=== PATIENT | female | born 1980 | race African-American/Black ===

== ENCOUNTER 2018-11-08 15:33 | Outpatient (CLI) | payer OTHER | END 2018-11-08 15:34 | disposition home or self-care (01) | LOC: BICMAMMO 15:33 | PROVIDERS: ATTEND Family Medicine | DX: Z12.31 Encounter for screening mammogram for malignant neoplasm of breast (principal) | CPT/HCPCS: 77067 ==

== ENCOUNTER 2023-09-26 00:52 | Inpatient (IN) | payer OTHER ==
[2023-09-26 03:06] LABS: Hematocrit 17.6 % (36.0-47.0); Hemoglobin 6.5 g/dL (12.0-16.0); Mean Corpuscular HGB CONC 36.9 g/dL (32.0-36.0); Mean Corpuscular Hemoglobin 39.6 pg (27.0-31.0); Mean Corpuscular Volume 107.3 fl (78.0-98.0); Mean Platelet Volume 10.3 fL (7.4-10.4); Platelet Count 541 10x3/uL (130-400); RBC Distribution Width 17.6 % (11.5-14.5); Red Blood Cell (RBC) Count 1.64 mill/uL (4.20-5.40); White Blood Cell (WBC) Count 15.1 10x3/uL (4.8-10.8)
[2023-09-26 03:10] LABS: Delete Auto Diff?? YES; Manual Diff?? YES
[2023-09-26 03:30] LABS: ALT (SGPT) 85 U/L (8-55); AST (SGOT) 98 U/L (5-34); Albumin 4.5 g/dL (3.5-5.0); Alkaline Phosphatase 105 U/L (40-110); Anion Gap 14 mmol/L (10-20); BUN (Urea Nitrogen) 15 mg/dL (7.0-18.7); Bilirubin, Total 2.4 mg/dL (0.2-1.2); Calc. Creatinine Clearance 0 mL/min (70-130); Carbon Dioxide 17 mmol/L (22-29); Chloride 111 mmol/L (98-107); Estimated GFR 90; Globulin 3.5 g/dL (2.4-3.5); Glucose 90 mg/dL (70-105); Potassium 4.5 mmol/L (3.5-5.1); Sodium 137 mmol/L (136-145)
[2023-09-26 04:29] LABS: Pregnancy Test - Urine (BHCG) Negative (Negative); Pregu Control Bar Appear? YES (CONTROL BAR)
[2023-09-26 04:30] LABS: Pregu Control Background? CLEAR/WHITE (CLR/WHITE)
[2023-09-26 04:32] LABS: Bilirubin Negative (Negative); Blood, Urine 3+ (Negative); CAUTI Indications for Culture Dysuria,urgency,freq; Clarity Turbid (Clear); Glucose, Urine (Dipstick) Normal (Negative); Ketone, Urine Negative (Negative); Leukocyte 250 Leu/uL (Negative); Nitrite Negative (Negative); Protein, Urine (Dipstick) 30 mg/dL (Neg-Trace); Specific Gravity, Urine 1.013 (1.002-1.036); WBC/HPF 21-50 HPF (0-3)
[2023-09-26 04:36] LABS: Magnesium 2.1 mg/dL (1.6-2.6)
[2023-09-26 04:41] LABS: Troponin I Less than 0.010 ng/mL (< 0.028)
[2023-09-26] MEDS ORDERED: Morphine 4 MG/ML VIAL ONE ×2 (04:45→05:57)
[2023-09-26] MEDS ORDERED: Ondansetron PF 4 MG/2 ML Vial ONE (04:45)
[2023-09-26 05:04] LABS: Bacteria/HPF 1+ HPF (None Seen); Urine Culture Reflex Yes Yes
[2023-09-26 05:05] LABS: Specific Gravity 1.013 (1.002-1.036)
[2023-09-26 05:42] LABS: Band 23 % (5-11); Lymphocytes 10 % (21-51); Monocytes 9 % (0-10); Neutrophil 58 % (42-75); Nucleated RBC (Manual Ct) 5 % (0)
[2023-09-26 05:43] LABS: Anisocytosis MODERATE=16-30 cells (100X) (0-5/hpf); Polychromasia SLIGHT = 2-3 cells (100X) (0-2/hpf); Sickle Cells SLIGHT = 1-5 cells (100X) (None Seen); Target Cells SLIGHT = 2-5 cells (100X) (0-1/hpf)
[2023-09-26] MEDS ORDERED: Piperacillin/Tazobactam 3.375 GM VIAL ONE (05:57)
[2023-09-26] MEDS ORDERED: Sodium Chloride 0.9% 100 ML ONE (05:58)
[2023-09-26 06:30] LABS: SARS-CoV-2 NAA Rapid Test DETECTED (NotDetected)
[2023-09-26] MEDS ORDERED: Senokot S 8.6-50 MG TAB PO PRN (07:24)
[2023-09-26] MEDS ORDERED: Ondansetron PF 4 MG/2 ML Vial IVP PRN (07:24)
[2023-09-26] MEDS ORDERED: Ondansetron ODT 4 MG TAB PO PRN (07:24)
[2023-09-26] MEDS ORDERED: Calcium Carbonate 500 MG ChewTAB PO PRN (07:24)
[2023-09-26] MEDS ORDERED: Acetaminophen 500 MG TAB PO PRN (07:27)
[2023-09-26 09:58] VITALS: BMI 22.4
[2023-09-26] MEDS: Morphine 4 MG/ML VIAL SLOW IVP PRN ×3 (12:10→21:54)
[2023-09-26] MEDS: cefTRIAXone\\ROCEPHIN 1 GM in Sodium Chloride 0.9% 100 ML IVPB SCH (12:11)
[2023-09-26] MEDS ORDERED: Iopamidol 370 76% 100 ML VIAL ONE (14:33)
[2023-09-26] MEDS: Lactated Ringer's 1,000 ML IV SCH ×3 (16:53→21:56)
[2023-09-26 19:13] LABS: #Basophils 0.1 thou/uL (0.0-0.2); #Eosinphils 0.2 thou/uL (0.0-0.7); #Monocytes 1.3 thou/uL (0.11-0.59); #Neutrophils 6.8 thou/uL (1.40-6.50); %Basophils 0.5 % (0.0-1.0); %Eosinophils 1.4 % (0.0-10.0); %Lymphocytes 42.7 % (21.0-51.0); %Monocytes 8.7 % (0.0-10.0); %Neutrophils 45.8 % (42.0-75.0); Hematocrit 24.4 % (36.0-47.0); Mean Corpuscular HGB CONC 36.9 g/dL (32.0-36.0); Mean Corpuscular Hemoglobin 36.4 pg (27.0-31.0); Mean Platelet Volume 10.8 fL (7.4-10.4); Platelet Count 520 10x3/uL (130-400); RBC Distribution Width 19.9 % (11.5-14.5); Red Blood Cell (RBC) Count 2.47 mill/uL (4.20-5.40)
[2023-09-26 19:20] LABS: Manual Diff?? YES; Mean Corpuscular Volume 98.8 fl (78.0-98.0)
[2023-09-26 19:50] LABS: Band 6 % (5-11); Eosinophils 2 % (0-10); Lymphocytes 38 % (21-51); Monocytes 6 % (0-10); Neutrophil 46 % (42-75); Nucleated RBC (Manual Ct) 6 % (0); Reactive Lymphocytes 2 % (0-10)
[2023-09-26 19:52] LABS: Anisocytosis MODERATE=16-30 cells (100X) (0-5/hpf); Burr Cells SLIGHT = 2-5 cells (100X) (0-1/hpf); Elliptocytes SLIGHT = 2-5 cells (100X) (0-1/hpf); Polychromasia SLIGHT = 2-3 cells (100X) (0-2/hpf); Sickle Cells SLIGHT = 1-5 cells (100X) (None Seen); Target Cells SLIGHT = 2-5 cells (100X) (0-1/hpf)
[2023-09-26 19:53] LABS: Platelet Adequacy Comment Appears Increased; RBC Morph Comment Within Normal Limits
[2023-09-27] MEDS: Morphine 4 MG/ML VIAL SLOW IVP PRN ×6 (01:37→22:40)
[2023-09-27] MEDS: Lactated Ringer's 1,000 ML IV SCH ×2 (06:22→17:42)
[2023-09-27 06:47] LABS: Hematocrit 25.2 % (36.0-47.0); Hemoglobin 9.1 g/dL (12.0-16.0); Mean Corpuscular HGB CONC 36.1 g/dL (32.0-36.0); Mean Corpuscular Volume 96.9 fl (78.0-98.0); Mean Platelet Volume 12.2 fL (7.4-10.4); RBC Distribution Width 21.2 % (11.5-14.5); White Blood Cell (WBC) Count 14.9 10x3/uL (4.8-10.8)
[2023-09-27 06:57] LABS: Delete Auto Diff?? YES; Manual Diff?? YES; Platelet Count 294 10x3/uL (130-400)
[2023-09-27 07:10] LABS: CRP (Inflammatory) 1.46 mg/dL (= or < 0.5); Magnesium 1.9 mg/dL (1.6-2.6)
[2023-09-27 07:30] LABS: ALT (SGPT) 75 U/L (8-55); AST (SGOT) 90 U/L (5-34); Albumin 4.2 g/dL (3.5-5.0); Alkaline Phosphatase 111 U/L (40-110); Anion Gap 14 mmol/L (10-20); BUN (Urea Nitrogen) 7 mg/dL (7.0-18.7); Bilirubin, Total 2.6 mg/dL (0.2-1.2); Calc. Creatinine Clearance 92 mL/min (70-130); Carbon Dioxide 19 mmol/L (22-29); Chloride 110 mmol/L (98-107); Estimated GFR 109; Globulin 3.7 g/dL (2.4-3.5); Glucose 74 mg/dL (70-105); Protein, Total 7.9 g/dL (6.0-8.3); Sodium 138 mmol/L (136-145)
[2023-09-27 07:40] LABS: Band 8 % (5-11); CellaVision Operator ID LAB.GE; Eosinophils 2 % (0-10); Howell Jolly Bodies SLIGHT = 1-2 cells HPF (None Seen); Hypochromia SLIGHT = 6-15 cells HPF (0-5); Lymphocytes 35 % (21-51); Monocytes 8 % (0-10); Myelocyte 1 % (0-0); Neutrophil 43 % (42-75); Nucleated RBC (Manual Ct) 8 % (0); Platelet Adequacy Comment Platelets Normal; Polychromasia MODERATE = 3-4 cells HPF (0-2); Reactive Lymphocytes 1 % (0-10); Sickle Cells MODERATE= 6-15 cells HPF (None Seen); Total Cell Count 100
[2023-09-27] MEDS: cefTRIAXone\\ROCEPHIN 1 GM in Sodium Chloride 0.9% 100 ML IVPB SCH (12:19)
[2023-09-28] MEDS: Lactated Ringer's 1,000 ML IV SCH ×4 (00:03→20:05)
[2023-09-28] MEDS: Morphine 4 MG/ML VIAL SLOW IVP PRN (02:43)
[2023-09-28] MEDS: HYDROcodone/Acetaminophen 5/325 mg Tablet PO PRN ×4 (07:52→20:04)
[2023-09-28 07:55] LABS: Hematocrit 26.8 % (36.0-47.0); Hemoglobin 9.6 g/dL (12.0-16.0); Mean Corpuscular HGB CONC 35.8 g/dL (32.0-36.0); Mean Corpuscular Hemoglobin 35.2 pg (27.0-31.0); Mean Corpuscular Volume 98.2 fl (78.0-98.0); Platelet Count 288 10x3/uL (130-400); RBC Distribution Width 21.2 % (11.5-14.5); Red Blood Cell (RBC) Count 2.73 mill/uL (4.20-5.40); White Blood Cell (WBC) Count 13.9 10x3/uL (4.8-10.8)
[2023-09-28 08:04] LABS: Delete Auto Diff?? YES; Manual Diff?? YES
[2023-09-28 09:37] LABS: ALT (SGPT) 71 U/L (8-55); AST (SGOT) 87 U/L (5-34); Albumin 4.5 g/dL (3.5-5.0); Alkaline Phosphatase 119 U/L (40-110); Anion Gap 21 mmol/L (10-20); BUN (Urea Nitrogen) 8 mg/dL (7.0-18.7); Calc. Creatinine Clearance 90 mL/min (70-130); Calcium 10.3 mg/dL (7.8-10.44); Carbon Dioxide 13 mmol/L (22-29); Chloride 109 mmol/L (98-107); Estimated GFR 109; Globulin 3.8 g/dL (2.4-3.5); Glucose 81 mg/dL (70-105); Potassium 4.8 mmol/L (3.5-5.1); Protein, Total 8.3 g/dL (6.0-8.3); Sodium 138 mmol/L (136-145)
[2023-09-28 10:30] LABS: Anisocytosis SLIGHT = 6-15 cells HPF (0-5); Band 4 % (5-11); CellaVision Operator ID LAB.GE; Eosinophils 2 % (0-10); Lymphocytes 51 % (21-51); Monocytes 2 % (0-10); Neutrophil 38 % (42-75); Nucleated RBC (Manual Ct) 9 % (0); Platelet Adequacy Comment Platelets Normal; Polychromasia MODERATE = 3-4 cells HPF (0-2); Reactive Lymphocytes 2 % (0-10); Sickle Cells SLIGHT = 1-5 cells HPF (None Seen); Total Cell Count 100
[2023-09-28] MEDS: cefTRIAXone\\ROCEPHIN 1 GM in Sodium Chloride 0.9% 100 ML IVPB SCH (12:01)
[2023-09-29] MEDS: HYDROcodone/Acetaminophen 5/325 mg Tablet PO PRN ×2 (00:46→05:34)
[2023-09-29] MEDS: Lactated Ringer's 1,000 ML IV SCH (08:55)
[2023-09-29 11:51] LABS: ALT (SGPT) 61 U/L (8-55); AST (SGOT) 73 U/L (5-34); Albumin 4.3 g/dL (3.5-5.0); Alkaline Phosphatase 112 U/L (40-110); Anion Gap 14 mmol/L (10-20); BUN (Urea Nitrogen) 8 mg/dL (7.0-18.7); Calc. Creatinine Clearance 93 mL/min (70-130); Calcium 10.3 mg/dL (7.8-10.44); Carbon Dioxide 20 mmol/L (22-29); Chloride 108 mmol/L (98-107); Estimated GFR 110; Globulin 3.5 g/dL (2.4-3.5); Glucose 82 mg/dL (70-105); Potassium 4.8 mmol/L (3.5-5.1); Protein, Total 7.8 g/dL (6.0-8.3); Sodium 137 mmol/L (136-145)
[2023-09-29 12:36] VITALS: BP 132/74; TEMP 98
[2023-09-29] MEDS: cefTRIAXone\\ROCEPHIN 1 GM in Sodium Chloride 0.9% 100 ML IVPB SCH (13:13)
== END 2023-09-29 14:55 | disposition home or self-care (01) | DRG 177 ==
LOC: ERS 00:52 → SUATTDRO 00:52 → T4-B 08:41
PROVIDERS: ADMIT Internal Medicine; ATTEND Family Medicine
PROC: 30233N1 Transfusion of Nonautologous Red Blood Cells into Peripheral Vein, Percutaneous Approach (ICD-10-PCS; principal; 2023-09-26)
PROC: 8E0ZXY6 Isolation (ICD-10-PCS; 2023-09-26)
DX: U07.1 COVID-19 (principal); D57.00 Hb-SS disease with crisis, unspecified; N39.0 Urinary tract infection, site not specified; M87.9 Osteonecrosis, unspecified; Z88.8 Allergy status to other drugs, medicaments and biological substances; Z90.49 Acquired absence of other specified parts of digestive tract; Z90.81 Acquired absence of spleen; Z91.148 Patient's other noncompliance with medication regimen for other reason
CPT/HCPCS: 36415; 36430; 71045; 74177; 76705; 80053; 81001; 81025; 83010; 83605; 83615; 83690; 83735; 83880; 84484; 85025; 85046; 86140; 86850; 86900; 86901; 86904; 86922; 87040; 87086; 96361; 96365; 96375; 96376; J0696; J2270; J2405; J2543; J3490; J7120; P9016; Q9967

== ENCOUNTER 2024-09-12 10:10 | Outpatient (CLI) | payer OTHER | END 2024-09-12 10:11 | disposition home or self-care (01) | LOC: BICMAMMO 10:10 | PROVIDERS: ATTEND Student in an Organized Health Care Education/Training Program | DX: N63.32 Unspecified lump in axillary tail of the left breast (principal); R59.0 Localized enlarged lymph nodes | CPT/HCPCS: 77066; G0279 ==